=== PATIENT | female | born 1955 | race African-American/Black ===

== ENCOUNTER 2020-02-01 09:50 | Inpatient (IN) | payer SELFPAY ==
[2020-02-01 10:53] LABS: #Eosinphils 0.1 thou/uL (0.0-0.7); #Lymphocytes 2.1 thou/uL (1.20-3.40); #Monocytes 0.4 thou/uL (0.11-0.59); #Neutrophils 2.7 thou/uL (1.40-6.50); %Basophils 0.7 % (0.0-1.0); %Eosinophils 2.3 % (0.0-10.0); %Monocytes 7.8 % (0.0-10.0); %Neutrophils 50.1 % (42.0-75.0); Hemoglobin 14.4 g/dL (12.0-16.0); Mean Corpuscular HGB CONC 32.2 g/dL (32.0-36.0); Mean Corpuscular Hemoglobin 28.6 pg (27.0-31.0); Mean Corpuscular Volume 88.9 fL (78.0-98.0); Mean Platelet Volume 9.4 fL (7.4-10.4); Platelet Count 166 thou/uL (130-400); RBC Distribution Width 13.2 % (11.5-14.5); Red Blood Cell (RBC) Count 5.04 mill/uL (4.20-5.40); White Blood Cell (WBC) Count 5.3 thou/uL (4.8-10.8)
[2020-02-01 11:09] LABS: Bacteria/HPF None Seen HPF (None Seen); Bilirubin Negative (Negative); Blood, Urine Trace (Negative); Clarity Clear (Clear); Glucose, Urine (Dipstick) Normal (Negative); Ketone, Urine Negative (Negative); Leukocyte Negative Leu/uL (Negative); Nitrite Negative (Negative); Protein, Urine (Dipstick) 20 mg/dL (Neg-Trace); RBC/HPF 0-3 HPF (0-3); Specific Gravity, Urine 1.024 (1.002-1.036); WBC/HPF 0-3 HPF (0-3); pH, Urine 5.5 (5.0-9.0)
[2020-02-01 11:19] LABS: ALT (SGPT) 10 U/L (8-55); AST (SGOT) 16 U/L (5-34); Albumin 4.4 g/dL (3.4-4.8); Alkaline Phosphatase 101 U/L (40-110); Anion Gap 14 mmol/L (10-20); BUN (Urea Nitrogen) 15 mg/dL (9.8-20.1); Bilirubin, Total 0.5 mg/dL (0.2-1.2); Calc. Creatinine Clearance 0 mL/min (70-130); Carbon Dioxide 29 mmol/L (23-31); Chloride 103 mmol/L (98-107); Estimated GFR-MDRD 45; Glucose 95 mg/dL (80-115); Lipase 42 U/L (8-78); Potassium 3.7 mmol/L (3.5-5.1); Protein, Total 8.4 g/dL (6.0-8.3); Sodium 142 mmol/L (136-145)
--- NOTE | 2020-02-01 11:47 | CT ---
CT OF THE BRAIN WITHOUT CONTRAST: Date: 02/01/2020 INDICATION: History of high blood pressure with the patient not taking her current blood pressure medications and experiencing dizziness. COMPARISON: None. FINDINGS: There is generalized cerebral and cerebellar atrophy. There is prominent periventricular and subcortical white matter hypodensities likely related to sever e chronic small vessel white matter ischemic change. There are remote-appearing lacunar infarctions involving both basal ganglia. There is a subtle hypodensity involving the left caudate lobe which may reflect a lacunar infarct of indeterminate age. There are remote-appearing paramedian kaiser lacunar i nfarctions. There is hypodensity within the right cerebellum of undetermined chronicity. The skull is intact. The visualized paranasal sinuses are clear. Mastoid air cells are clear. IMPRESSION: 1. Age-indeterminate infarction involving the left caudate head and right cerebellum. Follow-up MRI of the brain is recommended for additional characterization. 2. Severe chronic small vessel white matter ischemic change with remote-appearing lacunar infarction s involving both basal ganglion, as well as the paramedian kaiser. POS: REJI
[2020-02-01] MEDS ORDERED: Aspirin Chewable 81 MG TAB ONE (12:15)
--- NOTE | 2020-02-01 12:20 | PDOC.HHP ---
Hospitalist HPI - History of Present Illness Dizziness History of Present Illness: PCP: [facility] The patient is a 64-year-old female with a past medical history of hypertension that presents to the emergency department for the above complaint. Per the ER record, the patient's daughter had multiple concerns about the patient, however, she was not at bedside when I interviewed the patient. The patient states that she is "fine", however, she reports that her daughter has been very concerned about her smoking. She reports that she smokes approximately half a pack per day for the past 40 years. She says that her daughter wants her to quit, but she has been unable to. The patient also reports that she has been recently diagnosed with hypertension and was started on amlodipine last month. She reports that she has not taken her pills for the past 3 days because she "forgot". She also says that her daughter believes she is becoming more forgetful, saying that she repeats herself often. Her daughter also believes that she has a change in her gait. The patient denies any recent falls or trauma. Denies any fever or recent illness. Patient denies any headaches, vision changes, speech changes, focal motor deficits to her extremities or swallowing issues. The patient denies any chest pain, heart palpitations, lightheadedness or swelling to lower extremities. Patient denies any shortness of breath, cough or wheezing. She has no known Covid contacts. She denies any abdominal pain, nausea, vomiting, hematochezia or melena. She denies any dysuria or hematuria. ED Course: VITAL SIGNS FriFeb 01, 2020 09:52 AMBROSE Bustamante Dannette BP: 184/85, Pulse: 75, Resp: 18, Temp: 98.5 (Oral), O2 sat: 98 on (Room Air), Time: 02/01/2020 09:52. Medication administration: Aspirin Low Dose 324 mg Oral Acknowledged 12:10 02/01/2020 Hospitalist ROS - Review of Systems All other systems reviewed; all pertinent +/- noted in HPI/Subj - Medication Medications: amLODIPine tablet : Strength - 2.5 mg : ORAL Patient Dose: 10 mg Oral once a day (in the morning). Allergies: NKDA Hospitalist History - Past Medical History Source: patient, RN notes reviewed Cardiac: reports: HTN (Uncontrolled, noncompliant on medication regimen) - Past Surgical History Past Surgical History: reports: - Family History Family History: denies: cerebrovascular accident - Social History Smoking Status: Current every day smoker (Half pack per day x40 years) Tobacco Type: cigarettes Alcohol: reports: None Drugs: reports: none Living Situation: With Family Occupation: Does not work Activity level: independent ambulation - Exam General Appearance: NAD, awake alert. negative: ill appearing Eye: PERRL, anicteric sclera ENT: normocephalic atraumatic, moist mucosa Neck: supple, symmetric, no JVD Heart: RRR, no murmur, no gallops, no rubs, normal peripheral pulses Respiratory: CTAB, no wheezes, no rales, no ronchi, normal chest expansion, no tachypnea Gastrointestinal: soft, non-tender, non-distended, normal bowel sounds, no bru it, no guarding, no rigidity Extremities: no cyanosis, no edema Skin: no rashes Neurological: cranial nerve grossly intact, normal sensation to touch, no weakness, no focal deficits. negative: facial droop, speech deficit, vision deficit Musculoskeletal: normal tone, normal strength Psychiatric: normal affect, A&O x 3 Hospitalist Results - Labs Result Diagrams: 02/01/20 10:43 02/01/20 10:43 Lab results: WBC 5.3 thou/uL (4.8-10.8) 02/01/20 10:43 Hgb 14.4 g/dL (12.0-16.0) 02/01/20 10:43 Hct 44.8 % (36.0-47.0) 02/01/20 10:43 MCV 88.9 fL (78.0-98.0) 02/01/20 10:43 Plt Count 166 thou/uL (130-400) 02/01/20 10:43 Neutrophils % 50.1 % (42.0-75.0) 02/01/20 10:43 Sodium 142 mmol/L (136-145) 02/01/20 10:43 Potassium 3.7 mmol/L (3.5-5.1) 02/01/20 10:43 Chloride 103 mmol/L (98-107) 02/01/20 10:43 Carbon Dioxide 29 mmol/L (23-31) 02/01/20 10:43 BUN 15 mg/dL (9.8-20.1) 02/01/20 10:43 Creatinine 1.22 mg/dL (0.6-1.1) H 02/01/20 10:43 Glucose 95 mg/dL (80-115) 02/01/20 10:43 Calcium 10.0 mg/dL (7.8-10.44) 02/01/20 10:43 Total Bilirubin 0.5 mg/dL (0.2-1.2) 02/01/20 10:43 AST 16 U/L (5-34) 02/01/20 10:43 ALT 10 U/L (8-55) 02/01/20 10:43 Alkaline Phosphatase 101 U/L (40-110) 02/01/20 10:43 Troponin I Less than 0.010 ng/mL (< 0.028) 02/01/20 10:43 Serum Total Protein 8.4 g/dL (6.0-8.3) H 02/01/20 10:43 Albumin 4.4 g/dL (3.4-4.8) 02/01/20 10:43 Lipase 42 U/L (8-78) 02/01/20 10:43 Urine Ketones Negative mg/dL (Negative) 02/01/20 10:40 Urine Blood Trace (Negative) A 02/01/20 10:40 Urine Nitrite Negative (Negative) 02/01/20 10:40 Ur Leukocyte Esterase Negative Myah/uL (Negative) 02/01/20 10:40 Urine RBC 0-3 HPF (0-3) 02/01/20 10:40 Urine WBC 0-3 HPF (0-3) 02/01/20 10:40 Ur Squamous Epith Cells 4-6 HPF (0-3) A 02/01/20 10:40 Urine Bacteria None Seen HPF (None Seen) 02/01/20 10:40 - Radiology Interpretation CT scan - head Status: report reviewed by me Additional Comment: IMPRESSION: 1. Age-indeterminate infarction involving the left caudate head and right cerebellum. Follow-up MRI of the brain is recommended for additional characterization. 2. Severe chronic small vessel white matter ischemic change with remote- appearing lacunar infarctions involving both basal ganglion, as well as the paramedian kaiser. Chest x-ray Status: pending Hospitalist H&P A/P - Problem (1) CVA (cerebral vascular accident) Code(s): I63.9 - CEREBRAL INFARCTION, UNSPECIFIED Status: Acute (2) Dizziness Code(s): R42 - DIZZINESS AND GIDDINESS Status: Acute (3) Hypertension Code(s): I10 - ESSENTIAL (PRIMARY) HYPERTENSION Status: Acute (4) Tobacco abuse Code(s): Z72.0 - TOBACCO USE Status: Chronic - Plan Plan: 64/F recently diagnosed HTN presents for multiple complaints. Admit to stroke unit, observation status. Expected length of stay less than 2 midnights. Presented hypertensive, NL HR, RR, SPO2, afebrile. NIH 1 in ED, for possible pronator drift EKG normal sinus rhythm, no ST elevations. CXR pending CT brain 1. Age-indeterminate infarction of left caudate head and right cerebellum. 2. Remote appearing lacunar infarctions involving both basal ganglia and paramedial kaiser. #CVA Upon assessment, NIH 0. Order MRI, carotid Doppler, echocardiogram. Continue aspirin, start statin. Consult stroke team and neurology. Check TSH, B12/folate, UA, FLP. Permissive hypertension. Neuro checks. Fall precautions #Dizziness Patient denies symptomatology, documented in ER note. Likely related to problem #1. #Hypertension Newly diagnosed 1 month ago. Started on amlodipine. Noncompliant for the past 3 days. Presented hypertensive with BP 184/85. We will start home dose amlodipine. Continue to monitor BP. #Tobacco abuse Half pack per day x40 years Unwilling to quit. Counseled tobacco cessation. SCDs for DVT prophylaxis. No GI prophylaxis. Full code. Designated medical contact is Mariely Lorenzo, daughter at [phone]. Discussed the case with Dr. Green.
[2020-02-01] MEDS ORDERED: Enalaprilat Dihydrate 1.25 MG/ML VIAL SLOW IVP PRN (13:01)
[2020-02-01] MEDS ORDERED: Labetalol HCl 100 MG/20 ML VIAL SLOW IVP PRN (13:01)
[2020-02-01] MEDS ORDERED: Calcium Carbonate 500 MG ChewTAB PO PRN (13:14)
[2020-02-01] MEDS ORDERED: Senokot S 8.6-50 MG TAB PO PRN (13:14)
--- NOTE | 2020-02-01 14:24 | RAD ---
PORTABLE CHEST 1 VIEW: Date: 02/01/2020 Time: 1344 hours HISTORY: Memory loss, loss of balance. FINDINGS: There are no previous exams for comparison. The heart size is normal. The aorta is tortuous. The lungs are well expanded without lobar consolidat ion, pneumothoraces, or pleural effusions. IMPRESSION: No radiographic evidence of acute cardiopulmonary process. POS: AH
--- NOTE | 2020-02-01 14:41 | MRI ---
MRI BRAIN NONCONTRAST: DATE: 02/01/2020 HISTORY: 64-year-old hypertensive female presents with worsening of dizziness, and increasing memory loss. Abn ormality found on CT. COMPARISON: No prior brain MRIs. FINDINGS: All of the images are significantly degraded by patient motion. There is no obstructive hydrocephalus. There is no midline shift or any other evidence of mass effect . There is no extra-axial fluid collection. There are extensive, confluent T2-hyperintensities throughout the cerebral white matter consistent wi th severe chronic ischemic white matter changes due to microvascular atherosclerosis. There is diffuse brain parenchymal volume loss. In the right centrum semiovale and bowman radiata, there is a approximately 1 x 1.5 cm patchy focus of T2 and FLAIR hyperintensity which appears moderately hyperintense on DWI. This could represent a combination of mildly restricted diffusion and T2 shine through. Etiology is uncertain. It is unknown whether this represents a subacute deep cerebral white matter infarction or vasogenic edema around small focus of infection or neoplasm. There are several additional scattered, smaller such lesions in the bilateral frontal deep white matter. There is a large number of small and tiny old lacunar infarctions involving the basal ganglia, thalam i, kaiser, and periventricular and deep cerebral white matter bilaterally. Small 1 x 0.6 cm focus of T2 and FLAIR hyperintensity with moderately restricted diffusion correspond s to the lesion in question on the CT, at the head of the left caudate nucleus, consistent with acute or subacute lacunar infarction. IMPRESSION: 1) severe chronic ischemic white matter disease. 2) large number of tiny old lacunar infarctions of the corpus striatum, thalami, and kaiser; and in the bilateral cerebral deep white matter. 3) small acute or subacute lacunar infarction in the head of the left caudate nucleus. 4) a small right cerebral small deep white matter lesion, plus several additional tiny bilateral intr a-axial lesions of uncertain etiology. Contrast enhanced MRI may be useful, but that may be nondiagnostic because of significant patient motion (inability for patient to hold still).
[2020-02-01 14:50] LABS: Troponin I Less than 0.010 ng/mL (< 0.028)
[2020-02-01 15:31] LABS: Thyroid Stimulating Hormone 1.8911 uIU/mL (0.35-4.94)
--- NOTE | 2020-02-01 16:40 | ULT ---
EXAM: Carotid ultrasound HISTORY: Stroke/TIA COMPARISON: None TECHNIQUE: Multiplanar grayscale and color Doppler images were obtained in a carotid ultrasound. Spec tral analysis of the Doppler waveforms were performed. FINDINGS: Intimal thickening is seen bilaterally. There is a small amount of plaque seen in the proximal aspect of both internal carotid arteries. The Doppler waveforms are normal in the visualized vessels. Peak systolic velocity in the right internal carotid artery 65 cm/s. Peak systolic velocity in the right common carotid artery 64 cm/s. The right ICA/CCA ratio is 1.0. Peak systolic velocity in the left internal carotid artery 64 cm/s. Peak systolic velocity in the left common carotid artery 73 cm/s. The left ICA/CCA ratio is 0.9. Both vertebral arteries demonstrate antegrade flow without focal stenosis IMPRESSION: No evidence of hemodynamically significant stenosis.
[2020-02-01] MEDS ORDERED: Amlodipine 10 MG TAB PO SCH (17:00)
[2020-02-01 17:36] LABS: Troponin I 0.011 ng/mL (< 0.028)
[2020-02-01] MEDS: Atorvastatin Calcium 40 MG TAB PO SCH (21:52)
[2020-02-01] MEDS: Famotidine 20 MG TAB PO SCH (21:52)
[2020-02-01 23:46] LABS: SARS-CoV-2 MS2 Positive; SARS-CoV-2 N Gene Negative; SARS-CoV-2 S Gene Negative; SARS-CoV-2 by NAA Not Detected (NotDetected); SARS-CoV-2 orf1ab Negative
[2020-02-02 00:09] VITALS: BMI 22.9
[2020-02-02 05:55] LABS: #Eosinphils 0.2 thou/uL (0.0-0.7); #Lymphocytes 1.7 thou/uL (1.20-3.40); #Monocytes 0.4 thou/uL (0.11-0.59); #Neutrophils 2.2 thou/uL (1.40-6.50); %Basophils 0.4 % (0.0-1.0); %Eosinophils 3.4 % (0.0-10.0); %Lymphocytes 38.8 % (21.0-51.0); %Monocytes 8.7 % (0.0-10.0); %Neutrophils 48.7 % (42.0-75.0); Hemoglobin 14.4 g/dL (12.0-16.0); Mean Corpuscular HGB CONC 31.9 g/dL (32.0-36.0); Mean Corpuscular Hemoglobin 28.3 pg (27.0-31.0); Mean Corpuscular Volume 88.7 fL (78.0-98.0); Mean Platelet Volume 10.4 fL (7.4-10.4); Platelet Count 158 thou/uL (130-400); RBC Distribution Width 13.2 % (11.5-14.5); Red Blood Cell (RBC) Count 5.09 mill/uL (4.20-5.40); White Blood Cell (WBC) Count 4.4 thou/uL (4.8-10.8)
[2020-02-02 06:01] LABS: Anion Gap 16 mmol/L (10-20); BUN (Urea Nitrogen) 15 mg/dL (9.8-20.1); Calc. Creatinine Clearance 50 mL/min (70-130); Calcium 9.7 mg/dL (7.8-10.44); Carbon Dioxide 27 mmol/L (23-31); Cardiac Risk 3.5 (Less than 4.5); Chloride 103 mmol/L (98-107); Cholesterol 175 mg/dl (< 200 Desired); Estimated GFR-MDRD 65; Glucose 89 mg/dL (80-115); HDL Cholesterol 50 mg/dL (>60 Neg Risk); LDL Cholesterol, Calculated 107 mg/dL; Potassium 3.8 mmol/L (3.5-5.1); Sodium 142 mmol/L (136-145); Triglycerides 90 mg/dL (Less than 150)
--- NOTE | 2020-02-02 07:35 | PDOC.HOSPP ---
- Subjective Encounter Date: 02/02/20 Encounter Time: 09:33 Subjective: Patient seen and examined. No new complaints. No overnight events. Daughter at bedside. Discussed MRI, CD results. Discussed BP medications, cholesterol medications and smoking cessation. Patient denies any headaches, vision or speech changes, weakness to extremities. Denies chest pain, SOB, abdominal pain. - Objective Vital Signs & Weight: Vital Signs (12 hours) Temp Pulse Resp BP Pulse Ox 02/02/20 04:00 98.2 F 76 14 192/81 H 96 02/02/20 00:00 97.6 F 80 13 162/75 H 97 02/01/20 20:50 97.8 F 73 18 168/72 H 98 Weight Weight 125 lb 9.6 oz Result Diagrams: 02/02/20 05:03 02/02/20 05:03 Hospitalist ROS - Review of Systems Constitutional: denies: fever, chills Eyes: denies: vision change Respiratory: denies: cough, shortness of breath, hemoptysis Cardiovascular: denies: chest pain, palpitations, edema, light headedness Gastrointestinal: denies: nausea, vomiting, abdominal pain, melena, hematochezia Genitourinary: denies: dysuria, hematuria Neurological: denies: weakness, numbness, incoordination, change in speech, confusion All other systems reviewed; all pertinent +/- noted in HPI/Subj - Medication Medications: Active Medications Generic Name Dose Route Start Last Admin Trade Name Freq PRN Reason Stop Dose Admin Atorvastatin Calcium 40 mg 02/01/20 21:00 02/01/20 21:52 Atorvastatin Calcium 40 Mg Tab PO 40 mg HS MARICEL Administration Famotidine 20 mg 02/01/20 21:00 02/01/20 21:52 Famotidine 20 Mg Tab PO 20 mg BID MARICEL Administration - Exam General Appearance: NAD, awake alert. negative: ill appearing General - other findings: eating breakfast Eye: PERRL, anicteric sclera ENT: normocephalic atraumatic Neck: supple, symmetric Heart: RRR, no gallops, no rubs, normal peripheral pulses Respiratory: CTAB, no wheezes, no rales, no ronchi, normal chest expansion, no tachypnea Gastrointestinal: soft, non-tender, normal bowel sounds, no guarding, no rigidity Extremities: no cyanosis, no edema Neurological: cranial nerve grossly intact, no weakness, no focal deficits Neurological - other findings: NIH 0 Musculoskeletal: normal tone, normal strength Psychiatric: normal affect, A&O x 3 Hosp A/P (1) CVA (cerebral vascular accident) Code(s): I63.9 - CEREBRAL INFARCTION, UNSPECIFIED Status: Acute (2) Dizziness Code(s): R42 - DIZZINESS AND GIDDINESS Status: Acute (3) Hypertension Code(s): I10 - ESSENTIAL (PRIMARY) HYPERTENSION Status: Acute (4) Dyslipidemia Code(s): E78.5 - HYPERLIPIDEMIA, UNSPECIFIED Status: Acute (5) Tobacco abuse Code(s): Z72.0 - TOBACCO USE Status: Chronic - Plan 64/F recently diagnosed HTN presents for multiple complaints. Admit to stroke unit, observation status. Expected length of stay less than 2 midnights. Presented hypertensive, NL HR, RR, SPO2, afebrile. NIH 1 in ED, for possible pronator drift EKG normal sinus rhythm, no ST elevations. CXR pending CT brain 1. Age-indeterminate infarction of left caudate head and right cerebellum. 2. Remote appearing lacunar infarctions involving both basal ganglia and paramedial kaiser. #CVA Upon assessment, NIH 0. MRI acute/subacute Left caudate infarct, many old lacunar infarcts, lesions of unknown etiology. Recommend MRI with contrast?- will defer to neurology CD no significant stenosis Echo pending Neurology consultation pending. Neuro checks. Fall precautions #Dizziness Resolved. Likely related to problem #1. #Hypertension BP 192/81 this morning. ASCVD risk score 35.9%, High continue amlodipine, add lisinopril continue statin and aspirin Continue to monitor BP. #Dyslipidemia ASCVD score 35.9% Continue statin therapy #Tobacco abuse Half pack per day x40 years Says she is willing to quit. Start nicotine patch. Counseled tobacco cessation. SCDs for DVT prophylaxis. No GI prophylaxis. Full code. Designated medical contact is Mariely Lorenzo, daughter at [phone]. Discussed the case with Dr. Green.
[2020-02-02] MEDS: Famotidine 20 MG TAB PO SCH ×2 (08:09→23:06)
[2020-02-02] MEDS: Aspirin 325 mg Enteric Coated Tablet PO SCH (08:11)
[2020-02-02] MEDS: Amlodipine 10 MG TAB PO SCH (08:11)
[2020-02-02] MEDS: Lisinopril 10 MG TAB PO SCH (08:11)
[2020-02-02] MEDS: Enoxaparin Sodium 30 MG/0.3 ML SYRINGE SC SCH (08:12)
[2020-02-02] MEDS ORDERED: FLU VACC QS2020-21(6MOS UP)/PF 60 MCG/0.5 ML SYRINGE IM ONE (09:00)
[2020-02-02] MEDS ORDERED: Nicotine 14 MG PATCH TD SCH (10:00)
[2020-02-02] MEDS ORDERED: Lorazepam 2 MG/ML VIAL SLOW IVP SCH (11:00)
--- NOTE | 2020-02-02 13:40 | MRI ---
BRAIN MRI WITH CONTRAST: HISTORY: Follow-up exam. Abnormal findings noted on brain MRI 02/01/2020. FINDINGS: The axial T2-weighted images are markedly suboptimal due to motion degradation. Redemonstration of a T2 hyperintensity in the posterior right centrum semiovale. Postcontrast images do not demonstrate any evidence of enhancement. There are additional T1 hypointensities without enhancement involving bi lateral deep morales matter structures, bilateral thalami and the left/right bowman radiata. Remote cavitary lacunar infarcts are favored. IMPRESSION: No pathologic enhancement the brain parenchyma. Previously noted T2 and FLAIR hyperinten sities are favored to be remote cavitary lacunar infarcts. Transcribed Date/Time: 02/02/2020 1:47 PM
--- NOTE | 2020-02-02 14:17 | CON ---
NEUROLOGY CONSULTATION DATE OF CONSULTATION: 02/02/2020 REASON FOR CONSULTATION: Altered mental status/dizziness/receptive aphasia. HISTORY OF PRESENT ILLNESS: Ms. Rodriguez is a 64-year-old female with medical history significant for hypertension, presented to the emergency room with dizziness and problems with speaking. History is obtained from the patient's daughter, according to the daughter, she smokes half a pack a day for the last 40 years and was diagnosed with hypertension and was started on amlodipine last month and thought that she is becoming more forgetful and problems with finding the right words out and she was found increasingly confused. The patient also complained of dizziness and there was a problem with the gait, so the daughter decided to bring her to the emergency room for further evaluation. The patient denies any focal weakness, focal paresthesias, nausea, vomiting, headache, chest pain, vertigo, difficulty with swallowing, blurred vision, double vision, chest pain, heart palpitations, lightheadedness, shortness of breath, recent sick contacts, or recent exposure to COVID. In the emergency room, head CT was done, which was negative for acute intracranial pathology. She was given aspirin and admitted for further evaluation. REVIEW OF SYSTEMS: All systems reviewed and were negative except the pertinent positives and negatives mentioned in the HPI. HOME MEDICATIONS: Amlodipine. ALLERGIES: NO KNOWN DRUG ALLERGIES. PAST MEDICAL HISTORY: Hypertension and noncompliance with the medication. PAST SURGICAL HISTORY: section. PAST FAMILY HISTORY: No family history of CVA. SOCIAL HISTORY: She lives with family. Does not work. She does smokes half a pack a day for the last 40 years. - Objective Vital Signs & Weight: Vital Signs (12 hours) Temp Pulse Resp BP Pulse Ox 02/02/20 04:00 98.2 F 76 14 192/81 H 96 02/02/20 00:00 97.6 F 80 13 162/75 H 97 02/01/20 20:50 97.8 F 73 18 168/72 H 98 Weight Weight 125 lb 9.6 oz Active Medications Generic Name Dose Route Start Last Admin Trade Name Freq PRN Reason Stop Dose Admin Atorvastatin Calcium 40 mg 02/01/20 21:00 02/01/20 21:52 Atorvastatin Calcium 40 Mg Tab PO 40 mg HS MARICEL Administration Famotidine 20 mg 02/01/20 21:00 02/01/20 21:52 Famotidine 20 Mg Tab PO 20 mg BID MARICEL Administration PHYSICAL EXAMINATION: General Appearance: NAD, awake alert. negative: ill appearing Eye: PERRL, anicteric sclera ENT: normocephalic atraumatic, moist mucosa Neck: supple, symmetric, no JVD Heart: RRR, no murmur, no gallops, no rubs, normal peripheral pulses Respiratory: CTAB, no wheezes, no rales, no ronchi, normal chest expansion, no tachypnea Gastrointestinal: soft, non-tender, non-distended, normal bowel sounds, no bruit, no guarding, no rigidity Extremities: no cyanosis, no edema Skin: no rashes Neurological: Mental status, the patient is alert and oriented to person, place, and time. Speech is clear. Cranial nerves 2 through 12 intact. Motor, muscle tone and bulk are normal. Strength 5/5 bilaterally. Sensory intact. Cerebellar, finger-nose testing intact. Gait deferred due to patient's safety reasons. DATA REVIEWED: I reviewed the labs, which were essentially unremarkable. Head CT consistent with chronic small vessel disease. Lab results: WBC 5.3 thou/uL (4.8-10.8) 02/01/20 10:43 Hgb 14.4 g/dL (12.0-16.0) 02/01/20 10:43 Hct 44.8 % (36.0-47.0) 02/01/20 10:43 MCV 88.9 fL (78.0-98.0) 02/01/20 10:43 Plt Count 166 thou/uL (130-400) 02/01/20 10:43 Neutrophils % 50.1 % (42.0-75.0) 02/01/20 10:43 Sodium 142 mmol/L (136-145) 02/01/20 10:43 Potassium 3.7 mmol/L (3.5-5.1) 02/01/20 10:43 Chloride 103 mmol/L (98-107) 02/01/20 10:43 Carbon Dioxide 29 mmol/L (23-31) 02/01/20 10:43 BUN 15 mg/dL (9.8-20.1) 02/01/20 10:43 Creatinine 1.22 mg/dL (0.6-1.1) H 02/01/20 10:43 Glucose 95 mg/dL (80-115) 02/01/20 10:43 Calcium 10.0 mg/dL (7.8-10.44) 02/01/20 10:43 Total Bilirubin 0.5 mg/dL (0.2-1.2) 02/01/20 10:43 AST 16 U/L (5-34) 02/01/20 10:43 ALT 10 U/L (8-55) 02/01/20 10:43 Alkaline Phosphatase 101 U/L (40-110) 02/01/20 10:43 Troponin I Less than 0.010 ng/mL (< 0.028) 02/01/20 10:43 Serum Total Protein 8.4 g/dL (6.0-8.3) H 02/01/20 10:43 Albumin 4.4 g/dL (3.4-4.8) 02/01/20 10:43 Lipase 42 U/L (8-78) 02/01/20 10:43 Urine Ketones Negative mg/dL (Negative) 02/01/20 10:40 Urine Blood Trace (Negative) A 02/01/20 10:40 Urine Nitrite Negative (Negative) 02/01/20 10:40 Ur Leukocyte Esterase Negative Myah/uL (Negative) 02/01/20 10:40 Urine RBC 0-3 HPF (0-3) 02/01/20 10:40 Urine WBC 0-3 HPF (0-3) 02/01/20 10:40 Ur Squamous Epith Cells 4-6 HPF (0-3) A 02/01/20 10:40 Urine Bacteria None Seen HPF (None Seen) 02/01/20 10:40 ASSESSMENT AND PLAN: (1) CVA (cerebral vascular accident) Code(s): I63.9 - CEREBRAL INFARCTION, UNSPECIFIED Status: Acute (2) Dizziness Code(s): R42 - DIZZINESS AND GIDDINESS Status: Acute (3) Hypertension Code(s): I10 - ESSENTIAL (PRIMARY) HYPERTENSION Status: Acute (4) Tobacco abuse Code(s): Z72.0 - TOBACCO USE Status: Chronic 64 year old with acute stroke. MRI of the brain showed severe chronic small vessel disease and large number of tiny old lacunar infarcts in the corpus striatum, thalami, in the kaiser, and in the bilateral deep white matter and small acute or subacute lacunar infarction in the head of the left caudate nucleus. There is also a small deep matter lesion, for which MRI of the brain with contrast was recommended. Consider MRI of the brain of the contrast to evaluate the cerebral lesion. EEG to evaluate confusion. Carotid Dopplers reviewed, which were negative for hemodynamically significant stenosis. Echocardiogram showed ejection fraction of 65% to 70%. No thrombus or PFO. Permissive control of blood pressure at this time and strict control of blood glucose. Continue aspirin and statin for secondary stroke prevention. Consider adding Plavix for secondary stroke prevention. Telemetry to rule out arrhythmia. PT/OT/Speech. Continue home medications. Continue medical management per primary team. We will continue to follow. Thank you for the consult. Job ID: [id number] MTDD
[2020-02-02] MEDS: Nicotine 14 MG PATCH TD SCH (14:18)
--- NOTE | 2020-02-02 14:49 | PDOC.EEG ---
Neurology EEG Report - Report Report: This EEG was performed using 24 channel [employer] video digital EEG machine with 24 disc electrodes. This was an extended 2 hours 4 minutes of EEG recording. Digital analysis of the EEG was done for Julio and seizure detection which revealed no abnormalities. Background: The posterior background rhythm is 9-10 Hz. The background rhythm attenuates with eye opening and enhances with eye closure. Photic stimulation: Bioccipital symmetric response seen with photic stimulation. Hyperventilation: Not performed. Sleep: No stage change was observed. EEG diagnosis: Occasional irregular theta activity seen throughout the recording. Clinical interpretation: This EEG is consistent with mild generalized nonspecific cerebral dysfunction.
[2020-02-02] MEDS ORDERED: Melatonin 3 MG TAB PO PRN (22:18)
[2020-02-02] MEDS: Atorvastatin Calcium 40 MG TAB PO SCH (23:06)
[2020-02-03 05:20] LABS: #Basophils 0.1 thou/uL (0.0-0.2); #Eosinphils 0.2 thou/uL (0.0-0.7); #Lymphocytes 2.4 thou/uL (1.20-3.40); #Monocytes 0.7 thou/uL (0.11-0.59); #Neutrophils 3.1 thou/uL (1.40-6.50); %Basophils 1.1 % (0.0-1.0); %Lymphocytes 36.6 % (21.0-51.0); %Monocytes 10.4 % (0.0-10.0); %Neutrophils 48.9 % (42.0-75.0); Hemoglobin 13.1 g/dL (12.0-16.0); Mean Corpuscular HGB CONC 31.2 g/dL (32.0-36.0); Mean Corpuscular Volume 89.7 fL (78.0-98.0); Mean Platelet Volume 9.8 fL (7.4-10.4); Platelet Count 151 thou/uL (130-400); RBC Distribution Width 13.2 % (11.5-14.5); Red Blood Cell (RBC) Count 4.67 mill/uL (4.20-5.40); White Blood Cell (WBC) Count 6.4 thou/uL (4.8-10.8)
[2020-02-03 05:36] LABS: Anion Gap 12 mmol/L (10-20); BUN (Urea Nitrogen) 20 mg/dL (9.8-20.1); Calc. Creatinine Clearance 42 mL/min (70-130); Calcium 9.6 mg/dL (7.8-10.44); Carbon Dioxide 27 mmol/L (23-31); Chloride 104 mmol/L (98-107); Estimated GFR-MDRD 53; Glucose 89 mg/dL (80-115); Potassium 3.9 mmol/L (3.5-5.1); Sodium 139 mmol/L (136-145)
--- NOTE | 2020-02-03 07:30 | PDOC.HOSPP ---
- Subjective Encounter Date: 02/03/20 Encounter Time: 08:57 Subjective: Patient seen and examined. No new complaints. No overnight events. The patient says she feels fine and wants to go home. We discussed that case worker has been consulted to determine safe discharge plan. Patient denies any focal deficits, chest pain, SOB, abdominal pain. - Objective Vital Signs & Weight: Vital Signs (12 hours) Temp Pulse Resp BP Pulse Ox 02/03/20 04:00 97.5 F L 71 16 158/55 H 98 02/03/20 00:00 97.5 F L 74 20 139/68 99 02/02/20 20:00 98 F 84 16 168/79 H 98 Weight Weight 125 lb 9.6 oz I&O: 02/02/20 02/03/20 02/04/20 06:59 06:59 06:59 Intake Total 120 797 Balance 120 797 Result Diagrams: 02/03/20 04:36 02/03/20 04:36 Hospitalist ROS - Review of Systems Constitutional: denies: fever, chills Respiratory: denies: cough, shortness of breath Cardiovascular: denies: chest pain, palpitations, light headedness Gastrointestinal: denies: nausea, vomiting, abdominal pain Genitourinary: denies: dysuria, hematuria Neurological: denies: weakness, numbness, incoordination, change in speech All other systems reviewed; all pertinent +/- noted in HPI/Subj - Medication Medications: Active Medications Generic Name Dose Route Start Last Admin Trade Name Freq PRN Reason Stop Dose Admin Amlodipine Besylate 10 mg 02/02/20 09:00 02/02/20 08:11 Amlodipine 10 Mg Tab PO 10 mg DAILY MARICEL Administration Aspirin 325 mg 02/02/20 09:00 02/02/20 08:11 Aspirin 325 Mg Enteric Coated Tablet PO 325 mg DAILY MARICEL Administration Atorvastatin Calcium 40 mg 02/01/20 21:00 02/02/20 23:06 Atorvastatin Calcium 40 Mg Tab PO 40 mg HS MARICEL Administration Enoxaparin Sodium 30 mg 02/02/20 09:00 02/02/20 08:12 Enoxaparin Sodium 30 Mg/0.3 Ml Syringe SC 30 mg 0900 MARICEL Administration Famotidine 20 mg 02/01/20 21:00 02/02/20 23:06 Famotidine 20 Mg Tab PO 20 mg BID MARICEL Administration Lisinopril 10 mg 02/02/20 09:00 02/02/20 08:11 Lisinopril 10 Mg Tab PO 10 mg DAILY MARICEL Administration Melatonin 3 mg 02/02/20 22:18 02/02/20 23:06 Melatonin 3 Mg Tab PO 3 mg HS PRN Administration Insomnia Nicotine 14 mg 02/02/20 14:00 02/02/20 14:18 Nicotine 14 Mg Patch TD 14 mg Q24HR MARICEL Administration Sodium Chloride 10 ml 02/01/20 13:01 02/02/20 08:11 Flush - Normal Saline 10 Ml Syringe IVF 10 ml PRN PRN Administration Saline Flush - Exam General Appearance: NAD, awake alert. negative: ill appearing Eye: PERRL, anicteric sclera ENT: normocephalic atraumatic Neck: supple, symmetric Heart: RRR, no murmur, no gallops, no rubs, normal peripheral pulses Respiratory: CTAB, no wheezes, no rales, no ronchi, normal chest expansion, no tachypnea Gastrointestinal: soft, non-tender, normal bowel sounds, no guarding, no rigidity Extremities: no cyanosis, no edema Neurological: cranial nerve grossly intact, no focal deficits Musculoskeletal: normal tone, normal strength Psychiatric: normal affect, A&O x 3 Hosp A/P (1) CVA (cerebral vascular accident) Code(s): I63.9 - CEREBRAL INFARCTION, UNSPECIFIED Status: Acute (2) Dizziness Code(s): R42 - DIZZINESS AND GIDDINESS Status: Acute (3) Hypertension Code(s): I10 - ESSENTIAL (PRIMARY) HYPERTENSION Status: Acute (4) Dyslipidemia Code(s): E78.5 - HYPERLIPIDEMIA, UNSPECIFIED Status: Acute (5) Tobacco abuse Code(s): Z72.0 - TOBACCO USE Status: Chronic - Plan 64/F recently diagnosed HTN presents for multiple complaints. Admit to stroke unit, observation status. Expected length of stay less than 2 midnights. Presented hypertensive, NL HR, RR, SPO2, afebrile. NIH 1 in ED, for possible pronator drift EKG normal sinus rhythm, no ST elevations. CXR pending CT brain 1. Age-indeterminate infarction of left caudate head and right cerebellum. 2. Remote appearing lacunar infarctions involving both basal ganglia and pa ramedial kaiser. #CVA Upon assessment, NIH 0. Echo EF 65-70% MRI acute/subacute Left caudate infarct, many old lacunar infarcts, lesions of unknown etiology. Recommend MRI with contrast: old lacunar infarct CD no significant stenosis Neurology recs appreciated Neuro checks. Fall precautions CM consult pending, safe d/c home? daughter requests. #Dizziness Resolved. Likely related to problem #1. #Hypertension BP 141/72 this morning. ASCVD risk score 35.9%, High continue amlodipine and lisinopril continue statin and aspirin Continue to monitor BP. #Dyslipidemia ASCVD score 35.9% Continue statin therapy #Tobacco abuse Half pack per day x40 years Says she is willing to quit. Start nicotine patch. Counseled tobacco cessation. SCDs for DVT prophylaxis. No GI prophylaxis. Full code. Designated medical contact is Mariely Lorenzo, daughter at [phone]. Discussed the case with Dr. Green.
[2020-02-03] MEDS: Lisinopril 10 MG TAB PO SCH (10:11)
[2020-02-03] MEDS: Amlodipine 10 MG TAB PO SCH (10:12)
[2020-02-03] MEDS: Aspirin 325 mg Enteric Coated Tablet PO SCH (10:12)
[2020-02-03] MEDS: Enoxaparin Sodium 30 MG/0.3 ML SYRINGE SC SCH (10:13)
--- NOTE | 2020-02-03 13:12 | PDOC.NEUPN ---
- Subjective Encounter Date: 02/03/20 Subjective: Ms. Rodriguez denies any new complaints in the last 24 hours. - Objective Vital Signs & Weight: Vital Signs (12 hours) Temp Pulse Resp BP BP BP Pulse Ox 02/03/20 12:01 98.6 F 65 16 139/67 98 02/03/20 10:12 56 L 171/74 H 02/03/20 08:00 98.2 F 65 16 141/72 H 141/72 H 98 02/03/20 04:00 97.5 F L 71 16 158/55 H 98 Weight Weight 125 lb 9.6 oz I&O: 02/02/20 02/03/20 02/04/20 06:59 06:59 06:59 Intake Total 120 797 120 Balance 120 797 120 Result Diagrams: 02/03/20 04:36 02/03/20 04:36 Radiology Reviewed by me: Yes EKG Reviewed by me: Yes ROS - Review of Systems Constitutional: denies: fever, chills, sweats, weakness, malaise, other Eyes: denies: pain, vision change, conjunctivae inflammation, eyelid inflammatio n, redness, other ENT: denies: ear pain, ear discharge, nose pain, nose discharge, nose congestion, mouth pain, mouth swelling, throat pain, throat swelling, other Respiratory: denies: cough, dry, shortness of breath, hemoptysis, SOB with excertion, pleuritic pain, sputum, wheezing, other Gastrointestinal: denies: nausea, vomiting, abdominal pain, diarrhea, constipation, melena, hematochezia, other Genitourinary: denies: dysuria, frequency, incontinence, hematuria, retention, other Musculoskeletal: denies: neck pain, shoulder pain, arm pain, back pain, hand pain, leg pain, foot pain, other Skin: denies: rash, lesions, janine, bruising, other Neurological: denies: weakness, numbness, incoordination, change in speech, c onfusion, seizures, other - Medication Medications: Active Medications Generic Name Dose Route Start Last Admin Trade Name Freq PRN Reason Stop Dose Admin Amlodipine Besylate 10 mg 02/02/20 09:00 02/03/20 10:12 Amlodipine 10 Mg Tab PO 10 mg DAILY MARICEL Administration Aspirin 325 mg 02/02/20 09:00 02/03/20 10:12 Aspirin 325 Mg Enteric Coated Tablet PO 325 mg DAILY MARICEL Administration Atorvastatin Calcium 40 mg 02/01/20 21:00 02/02/20 23:06 Atorvastatin Calcium 40 Mg Tab PO 40 mg HS MARICEL Administration Enoxaparin Sodium 30 mg 02/02/20 09:00 02/03/20 10:13 Enoxaparin Sodium 30 Mg/0.3 Ml Syringe SC 30 mg 0900 MARICEL Administration Lisinopril 10 mg 02/02/20 09:00 02/03/20 10:11 Lisinopril 10 Mg Tab PO 10 mg DAILY MARICEL Administration Melatonin 3 mg 02/02/20 22:18 02/02/20 23:06 Melatonin 3 Mg Tab PO 3 mg HS PRN Administration Insomnia Nicotine 14 mg 02/02/20 14:00 02/02/20 14:18 Nicotine 14 Mg Patch TD 14 mg Q24HR MARICEL Administration Sodium Chloride 10 ml 02/01/20 13:01 02/03/20 10:16 Flush - Normal Saline 10 Ml Syringe IVF 10 ml PRN PRN Administration Saline Flush - Exam General Appearance: awake alert Eye: PERRL ENT: normocephalic atraumatic Neck: supple Respiratory: CTAB Cardiovascular: RRR Gastrointestinal: soft Extremities: no cyanosis Skin: normal turgor Neurological: CN's grossly intact, no focal deficits, no new deficit Musculoskeletal: normal tone, normal strength, no muscle wasting PSYCH: normal affect, normal behavior, A&O x 3 Results - Labs Result Diagrams: 02/03/20 04:36 02/03/20 04:36 Lab results: WBC 6.4 thou/uL (4.8-10.8) 02/03/20 04:36 Hgb 13.1 g/dL (12.0-16.0) 02/03/20 04:36 Hct 41.9 % (36.0-47.0) 02/03/20 04:36 MCV 89.7 fL (78.0-98.0) 02/03/20 04:36 Plt Count 151 thou/uL (130-400) 02/03/20 04:36 Neutrophils % 48.9 % (42.0-75.0) 02/03/20 04:36 Sodium 139 mmol/L (136-145) 02/03/20 04:36 Potassium 3.9 mmol/L (3.5-5.1) 02/03/20 04:36 Chloride 104 mmol/L (98-107) 02/03/20 04:36 Carbon Dioxide 27 mmol/L (23-31) 02/03/20 04:36 BUN 20 mg/dL (9.8-20.1) 02/03/20 04:36 Creatinine 1.25 mg/dL (0.6-1.1) H 02/03/20 04:36 Glucose 89 mg/dL (80-115) 02/03/20 04:36 Calcium 9.6 mg/dL (7.8-10.44) 02/03/20 04:36 Total Bilirubin 0.5 mg/dL (0.2-1.2) 02/01/20 10:43 AST 16 U/L (5-34) 02/01/20 10:43 ALT 10 U/L (8-55) 02/01/20 10:43 Alkaline Phosphatase 101 U/L (40-110) 02/01/20 10:43 Troponin I 0.011 ng/mL (< 0.028) 02/01/20 17:01 Serum Total Protein 8.4 g/dL (6.0-8.3) H 02/01/20 10:43 Albumin 4.4 g/dL (3.4-4.8) 02/01/20 10:43 Lipase 42 U/L (8-78) 02/01/20 10:43 Urine Ketones Negative mg/dL (Negative) 02/01/20 10:40 Urine Blood Trace (Negative) A 02/01/20 10:40 Urine Nitrite Negative (Negative) 02/01/20 10:40 Ur Leukocyte Esterase Negative Myah/uL (Negative) 02/01/20 10:40 Urine RBC 0-3 HPF (0-3) 02/01/20 10:40 Urine WBC 0-3 HPF (0-3) 02/01/20 10:40 Ur Squamous Epith Cells 4-6 HPF (0-3) A 02/01/20 10:40 Urine Bacteria None Seen HPF (None Seen) 02/01/20 10:40 - Radiology Interpretation MRI - head Additional Comment: MRI of the brain is consistent with acute infarction. PN A/P (1) CVA (cerebral vascular accident) Code(s): I63.9 - CEREBRAL INFARCTION, UNSPECIFIED Status: Acute (2) Dizziness Code(s): R42 - DIZZINESS AND GIDDINESS Status: Acute (3) Dyslipidemia Code(s): E78.5 - HYPERLIPIDEMIA, UNSPECIFIED Status: Acute (4) Hypertension Code(s): I10 - ESSENTIAL (PRIMARY) HYPERTENSION Status: Acute (5) Tobacco abuse Code(s): Z72.0 - TOBACCO USE Status: Chronic - Plan Daily Plan: PT/OT, speech therapy, DVT proph w/SCDs Ms. Rodriguez is a 64-year-old female with history significant for hypertension, hyperlipidemia and tobacco abuse presented with dizziness, speech deficit and also memory issues. MRI brain consistent with acute infarction. MRI of the brain reviewed which showed multiple tiny acute and subacute lacunar infarcts in the brain. There was some concern about T2 hyperintensities so MRI of the brain with contrast was recommended. MRI of the brain with contrast showed lacunar infarcts and no sign of tumor. 2D echo showed normal ejection fraction. No thrombus or PFO. EEG to evaluate for confusion reviewed which was negative for acute seizure activity Carotid Dopplers did not reveal hemodynamically significant stenosis. Continue aspirin and statin for secondary stroke prevention. Strict control of blood pressure and blood glucose. Telemetry Continue home medications. PT/OT/speech Fall precautions DVT prophylaxis Patient counseled about tobacco abuse Case management on board regarding discharge problem planning. Continue medical management per primary team.
[2020-02-03] MEDS: Nicotine 14 MG PATCH TD SCH (15:26)
[2020-02-03 15:27] VITALS: BP 162/76; TEMP 98.7
--- NOTE | 2020-02-03 18:33 | DIS ---
DATE OF ADMISSION: 02/01/2020 DATE OF DISCHARGE: 02/03/2020 PRIMARY CARE PHYSICIAN: [facility]. DIAGNOSES: 1. Cerebrovascular accident. 2. Dizziness. 3. Hypertension. 4. Dyslipidemia. 5. Tobacco abuse. 6. COVID test negative. CONDITION: Stable. I examined the patient the day of discharge, vital signs stable. Denies any chest pain, heart palpitations, shortness of breath, or focal motor weakness. S1 and S2 are auscultated. Lungs clear bilaterally. CONSULTS: Neurology, Dr. Eva Cobb. HOSPITAL COURSE: The patient is a 64-year-old female with a past medical history of uncontrolled hypertension, who presented to the emergency department for dizziness. The patient presented hypertensive, with normal heart rate, respirations, and oxygen saturation. ER doctor had an NIH of 1, upon my assessment, the patient had NIH of 0. EKG was normal sinus rhythm, no ST elevations. CT of the brain, noncontrast, showed age-indeterminate infarction involving the left caudate head and right cerebellum along with severe chronic small-vessel white matter ischemia and remote appearing lacunar infarctions involving both basal ganglia as well as the paramedian kaiser. Noncontrast MRI of the brain was performed and showed large number of tiny old lacunar infarcts, the corpus stratum, thalami and kaiser and bilateral cerebral deep white matter. Also showed small acute/subacute lacunar infarction in the head of the left caudate nucleus. Along with small right cerebral small deep white matter lesion plus several additional tiny bilateral lesions of uncertain etiology, recommended enhanced MRI for further evaluation. Enhanced MRI showed no pathological enhancement in the brain parenchyma. Carotid Doppler showed no evidence of any hemodynamically significant stenosis. Echocardiogram showed an EF of 65% to 70%, normal right ventricular size and function. EEG was normal. The patient was on full-dose aspirin and high-intensity statin throughout her stay. For blood pressure control, the patient was restarted on her home dose of amlodipine and lisinopril was added as a second agent. The patient's blood pressure control improved throughout her stay. The patient remained asymptomatic throughout her stay. PT and OT discharged the patient with no further recommendations. Speech language pathology reported mild word-finding and short-term memory deficit. Recommendation for outpatient speech language pathology. MEDICATIONS: At discharge; 1. Aspirin 325 mg p.o. daily. 2. Atorvastatin 40 mg p.o. at bedtime. 3. Amlodipine 10 mg p.o. daily. 4. Lisinopril 10 mg p.o. daily. FOLLOWUP: Follow up with PCP in one week. Repeat BMP, PCP to follow results. The patient given prescription for speech language pathology. DISCHARGE INSTRUCTIONS: Diet: Heart healthy. Activity: As tolerated. Disposition: Home. Time spent on this discharge was 20 minutes. Job ID: [id number]
[2020-02-03] MEDS ORDERED: Famotidine 20 MG TAB PO SCH (21:00)
== END 2020-02-03 15:43 | disposition home or self-care (01) | DRG 66 ==
LOC: ERS 09:50 → OBSVTOIN 12:51 → EEVIPCON 12:51 → ERHOLD 12:51 → 2SE 21:21
PROVIDERS: ADMIT Student in an Organized Health Care Education/Training Program; ATTEND Student in an Organized Health Care Education/Training Program
DX: I63.9 Cerebral infarction, unspecified (principal); I10 Essential (primary) hypertension; R29.701 NIHSS score 1; F17.210 Nicotine dependence, cigarettes, uncomplicated; E78.5 Hyperlipidemia, unspecified; Z20.828 Contact with and (suspected) exposure to other viral communicable diseases; R42 Dizziness and giddiness; Z79.899 Other long term (current) drug therapy
CPT/HCPCS: 36415; 70450; 70551; 70552; 71045; 80048; 80053; 80061; 81003; 81015; 82607; 82746; 83690; 83735; 84443; 84484; 85025; 87635; 90471; 90662; 90732; 93005; 93306; 93880; 95712; 95819; 95957; 96372; 96374; G0008; G0009; G0378; J1650; J2060; U0003